=== PATIENT | female | born 1990 | race Caucasian/White ===

== ENCOUNTER 2017-12-12 22:45 | Emergency (ER) | payer OTHER ==
[2017-12-12 23:09] VITALS: BP 127/64; PULSE 96; TEMP 98; BMI 34.9
--- NOTE | 2017-12-13 00:49 | PDOC ---
History of Present Illness <TeoOdilia Lesly - Last Filed: 12/13/17 01:07> - General History Source: Patient Exam Limitations: No Limitations - History of Present Illness Initial Comments: 12/13/17 01:01 The patient is a 26 year old female with no significant past medical history who presents to the ED with complaints of flu like symptoms for the past three days. The patient complains of subjectile fever, chills, body aches, sore throat and nasal congestion which has since moved down to her throat and caused her chest congestion and cough. She reports that she began to felt better yesterday but today she developed a cough. The patient reports treating her symptoms with Tylenol and Motrin. She reports one sick contact with her niece. She denies any nausea, vomiting, or diarrhea. <Sis Block - Last Filed: 12/13/17 01:13> - General Chief Complaint: Cold Symptoms Stated Complaint: COLD SYMPTOMS Time Seen by Provider: 12/12/17 23:23 Past History - Past Medical History COPD: No Other medical history: Pt denies - Suicide/Smoking/Psychosocial Hx Smoking History: Never smoked Have you smoked in the past 12 months: No Information on smoking cessation initiated: No Hx Alcohol Use: No Drug/Substance Use Hx: No Substance Use Type: None <TeoOdilia Lesly - Last Filed: 12/13/17 01:07> <Sis Block - Last Filed: 12/13/17 01:13> - Past Medical History Allergies/Adverse Reactions: Allergies Allergy/AdvReac Type Severity Reaction Status Date / Time No Known Allergies Allergy Verified 12/12/17 23:05 Home Medications: Ambulatory Orders Oseltamivir Phosphate [Tamiflu -] 75 mg PO BID #10 capsule 12/13/17 Review of Systems - Review of Systems Able to Perform ROS?: Yes Comments:: 12/13/17 01:01 CONSTITUTIONAL: Present: fever, chills Absent: no fatigue EYES: Absent: visual changes ENT: Present: nasal congestion Absent: ear pain, no sore throat CARDIOVASCULAR: Absent: chest pain, no palpitations RESPIRATORY: Present: cough Absent: no SOB GI: Absent: abdominal pain, no nausea, no vomiting, no constipation, no diarrhea GENITOURINARY: Absent: dysuria, no frequency, no hematuria MUSKULOSKELETAL: Absent: back pain, no arthralgia, no myalgia SKIN: Absent: rash NEURO: Absent: headache All Other Systems: Reviewed and Negative <Sis Block - Last Filed: 12/13/17 01:13> *Physical Exam - Vital Signs Last Vital Signs Temp Pulse Resp BP Pulse Ox 98.0 F 96 H 20 127/64 98 12/12/17 23:05 12/12/17 23:05 12/12/17 23:05 12/12/17 23:05 12/12/17 23:05 <Odilia Bruce - Last Filed: 12/13/17 01:07> - Vital Signs Last Vital Signs Temp Pulse Resp BP Pulse Ox 98.0 F 96 H 20 127/64 98 12/12/17 23:05 12/12/17 23:05 12/12/17 23:05 12/12/17 23:05 12/12/17 23:05 - Physical Exam Comments: 12/13/17 01:11 GENERAL: Well-appearing, well-nourished. No apparent distress. HEENT: Erythematous throat but no exudate. Uvula is midline. Normocephalic, atraumatic. PERRL, EOM intact. CARDIOVASCULAR: Normal S1, S2. Regular rate and rhythm. PULMONARY: Clear to auscultation bilaterally. ABDOMEN: Soft, non-distended, non-tender. EXTREMITIES: Normal ROM in all four extremities. No gross deformities. SKIN: Warm, dry. No rash NEUROLOGICAL: No focal neurological deficits. <Sis Block - Last Filed: 12/13/17 01:13> *DC/Admit/Observation/Transfer <Odilia Bruce - Last Filed: 12/13/17 01:07> - Attestations Scribe Attestion: 12/13/17 01:02 Documentation prepared by Sis Block, acting as medical laboratory manager for Odilia Bruce MD/DO. <UmairSis - Last Filed: 12/13/17 01:13> Diagnosis at time of Disposition: Flu syndrome - Discharge Dispostion Disposition: HOME Condition at time of disposition: Stable - Prescriptions Prescriptions: Oseltamivir Phosphate [Tamiflu -] 75 mg PO BID #10 capsule - Patient Instructions Printed Discharge Instructions: DI for Influenza -- Adult Additional Instructions: tamiflu was sent to [facility] pharmacy
== END 2017-12-13 01:19 | disposition home or self-care (01) ==
LOC: EDBD 22:45 → JER 22:45
DX: J11.1 Influenza due to unidentified influenza virus with other respiratory manifestations (principal)
CPT/HCPCS: 99282-25